=== PATIENT | male | born 1975 | race Caucasian/White ===

== ENCOUNTER 2016-08-12 20:38 | Emergency (ER) | payer BC, OTHER ==
[2016-08-12 20:59] VITALS: BP 131/79
[2016-08-12] MEDS ORDERED: Cyclobenzaprine TAB* 10 MG PO ONE (21:53)
[2016-08-12] MEDS ORDERED: Ketorolac INJ* 60 MG/2 ML VIAL IM ONE (21:54)
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
== END 2016-08-12 22:18 | disposition home or self-care (01) ==
LOC: UCEAST 20:38
DX: G24.3 Spasmodic torticollis (principal); Z88.5 Allergy status to narcotic agent; F17.210 Nicotine dependence, cigarettes, uncomplicated
CPT/HCPCS: 96372; 99212; A9270-GY; G0463; J1885

== ENCOUNTER 2017-07-13 20:22 | Emergency (ER) | payer BC ==
[2017-07-13 20:33] VITALS: BP 110/74
[2017-07-13] MEDS ORDERED: Cyclobenzaprine TAB* 10 MG PO ONE (21:07)
--- NOTE | 2017-07-13 21:20 | UC ---
Neck Pain HPI - HPI Summary HPI Summary: 4 DAYS OF RIGHT NECK/SHOULDER PAIN. HAS FULL ROM. HAS BURSTS OF PAIN WHEN HE TILTS HIS HEAD TO THE RIGHT. NO NUMBNESS/TINGLING. NO INJURY OR TRAUMA. - History of Current Complaint Chief Complaint: UCUpperExtremity Stated Complaint: NECK & SHOULDER PAIN Time Seen by Provider: 07/13/17 20:48 Hx Obtained From: Patient Onset/Duration Of Injury/Symptoms: Days Mechanism Of Injury: No Known Trauma Timing: Intermittent Episodes Onset/Duration: Lasting Minutes Severity: Moderate Pain Intensity: 5 Pain Scale Used: 0-10 Numeric Location: Discrete At: - RIGHT NECK Character: Sharp, Aching Aggravating Factors: Other: - TILTING HEAD TO RIGHT Alleviating Factors: Position Associated Signs & Symptoms: Positive: Negative - Allergies/Home Medications Allergies/Adverse Reactions: Allergies Allergy/AdvReac Type Severity Reaction Status Date / Time hydrocodone Allergy Severe Vomiting Verified 07/13/17 20:33 PMH/Surg Hx/FS Hx/Imm Hx Previously Healthy: Yes - Surgical History Surgical History: Yes Surgery Procedure, Year, and Place: left inguinal hernia - Family History Known Family History: Positive: Cardiac Disease - grandfather Negative: Hypertension - Social History Alcohol Use: Rare Substance Use Type: None Smoking Status (MU): Current Every Day Smoker Type: Cigarettes Amount Used/How Often: 3/4 PPD Length of Time of Smoking/Using Tobacco: 13 years Have You Smoked in the Last Year: No - Immunization History Most Recent Influenza Vaccination: denies Review Of Systems Constitutional: Positive: Negative Skin: Positive: Negative Respiratory: Positive: Negative Cardiovascular: Positive: Negative Gastrointestinal: Positive: Negative All Other Systems Reviewed And Are Negative: Yes Physical Exam Triage Information Reviewed: Yes Appearance: Well-Appearing, No Pain Distress, Well-Nourished Vital Signs: Initial Vital Signs Temp 98.4 F 07/13/17 20:28 Pulse 75 07/13/17 20:28 Resp 16 07/13/17 20:28 BP 110/74 07/13/17 20:28 Pulse Ox 99 07/13/17 20:28 Vital Signs Reviewed: Yes Eyes: Positive: Conjunctiva Clear ENT: Positive: Hearing grossly normal Neck: Positive: Supple, Nontender, No Lymphadenopathy Respiratory: Positive: No respiratory distress, No accessory muscle use Cardiovascular: Positive: Pulses Normal Abdomen Description: Positive: Soft Musculoskeletal: Positive: ROM Intact, No Edema, Other: - NO TENDERNESS NECK/ SHOULDER MUSCLES. NEG ROTATOR CUFF TESTING. NEG SPURLINGS Neurological: Positive: Alert Psychological: Positive: Age Appropriate Behavior Skin: Negative: rashes Neck Pain Course/Dx - Differential Dx/Diagnosis Provider Diagnoses: RIGHT NECK/SHOULDER PAIN Discharge - Discharge Plan Condition: Stable Disposition: HOME Prescriptions: Cyclobenzaprine TAB* [Flexeril TAB*] 10 mg PO BID PRN #30 tab PRN Reason: Pain Naproxen [Naproxen EC] 500 mg PO BID PRN #30 tab PRN Reason: Pain Patient Education Materials: Shoulder Sprain (ED) Referrals: Felipe Francisco MD [Primary Care Provider] - If Needed Rik Demarco MD [Medical Doctor] - If Needed Additional Instructions: BE SURE TO GO THROUGH SLOW RANGE OF MOTION AND STRETCHING EXERCISES DAILY YOU ARE ABLE TO PREVENT STIFFENING UP AND MAKING THE DISCOMFORT WORSE. REST, MASSAGE, HEAT. MUSCLE RELAXER BEFORE BED AND NAPROXEN TWICE DAILY NEEDED. IF YOUR SYMPTOMS ARE NOT IMPROVING OVER THE NEXT FEW DAYS FOLLOW-UP WITH YOUR PCP OR ORTHO FOR FURTHER EVALUATION.
== END 2017-07-13 21:22 | disposition home or self-care (01) ==
LOC: UCEAST 20:22
DX: M54.2 Cervicalgia (principal); M25.511 Pain in right shoulder; F17.210 Nicotine dependence, cigarettes, uncomplicated
CPT/HCPCS: 99212; A9270-GY; G0463

== ENCOUNTER 2018-02-21 20:28 | Emergency (ER) | payer BC ==
[2018-02-21 20:41] VITALS: BP 132/67
[2018-02-21] MEDS ORDERED: Amoxicillin/Clavulanate TAB* 875 MG PO ONE (21:19)
--- NOTE | 2018-02-21 21:25 | UC ---
Respiratory Complaint HPI - HPI Summary HPI Summary: The patient is a 42-year-old male who has been ill for 5-7 days. Started off with a cold and some nasal congestion. He later developed high fever chills as well as severe myalgias. He denies any chest pain or shortness of breath. He denies any nausea or vomiting. - History of Current Complaint Chief Complaint: UCRespiratory Stated Complaint: COUGH,COLD,ACHES Time Seen by Provider: 02/21/18 20:43 Hx Obtained From: Patient Onset/Duration: Gradual Onset, Lasting Days, Worse Since - x 2 d Timing: Constant Severity Initially: Mild Severity Currently: Moderate Pain Intensity: 6 Pain Scale Used: 0-10 Numeric Character: Cough: Productive Associated Signs And Symptoms: Positive: Fever, Chills - Allergies/Home Medications Allergies/Adverse Reactions: Allergies Allergy/AdvReac Type Severity Reaction Status Date / Time hydrocodone Allergy Severe Vomiting Verified 02/21/18 20:41 PMH/Surg Hx/FS Hx/Imm Hx Previously Healthy: Yes Respiratory History: Bronchitis - Surgical History Surgical History: Yes Surgery Procedure, Year, and Place: left inguinal hernia - Family History Known Family History: Positive: Cardiac Disease - grandfather Negative: Hypertension - Social History Alcohol Use: Rare Substance Use Type: None Smoking Status (MU): Light Every Day Tobacco Smoker Type: Cigarettes Amount Used/How Often: 3/4 PPD Length of Time of Smoking/Using Tobacco: 13 years Have You Smoked in the Last Year: No - Immunization History Most Recent Influenza Vaccination: denies Review of Systems Constitutional: Fever, Chills, Fatigue Skin: Negative Eyes: Negative ENT: Negative Respiratory: Cough Cardiovascular: Negative Gastrointestinal: Negative Genitourinary: Negative Motor: Negative Neurovascular: Negative Musculoskeletal: Myalgia Neurological: Headache Psychological: Negative All Other Systems Reviewed And Are Negative: Yes Physical Exam Triage Information Reviewed: Yes Appearance: Well-Appearing, No Pain Distress, Thin Vital Signs: Initial Vital Signs Temp 102.3 F 02/21/18 20:35 Pulse 95 02/21/18 20:35 Resp 16 02/21/18 20:35 BP 132/67 02/21/18 20:35 Pulse Ox 96 02/21/18 20:35 ENT: Positive: Hearing grossly normal. Negative: Nasal congestion, Nasal drainage, Trismus, Muffled voice, Hoarse voice Neck: Positive: Supple, Nontender, No Lymphadenopathy Respiratory: Positive: Lungs clear, Normal breath sounds, No respiratory distress, No accessory muscle use Cardiovascular: Positive: RRR, No Murmur Abdomen Description: Positive: Nontender, Soft. Negative: CVA Tenderness (R), CVA Tenderness (L) Musculoskeletal: Positive: ROM Intact, No Edema Neurological: Positive: Alert Psychological Exam: Normal Skin Exam: Normal UC Diagnostic Evaluation - Laboratory O2 Sat by Pulse Oximetry: 96 - normal/not hypoxic - Radiology Xray Interpretation: Positive (See Comments) - LLL infiltrate Radiology Interpretation Completed By: ED Physician Respiratory Course/Dx - Differential Dx/Diagnosis Provider Diagnoses: pneumonia Discharge - Sign-Out/Discharge Documenting (check all that apply): Patient Departure All imaging exams completed and their final reports reviewed: No - Discharge Plan Condition: Stable Disposition: HOME Prescriptions: Amoxicillin/Clavulanate TAB* [Augmentin TAB 875*] 875 mg PO BID #14 tab Patient Education Materials: Pneumonia (ED) Forms: *Work Release Referrals: Felipe Francisco MD [Primary Care Provider] - 3 Days (if not better) Additional Instructions: rest fluids recheck for new or worsening symptoms - Billing Disposition and Condition Condition: STABLE Disposition: Home
--- NOTE | 2018-02-22 07:52 | RAD ---
INDICATION: 2 days fever; 3 days cough. History of tobacco use. COMPARISON: March 13, 2017 TECHNIQUE: Dual energy PA and routine lateral views of the chest were obtained. REPORT: Elevated lung volumes and mild prominence of interstitial markings. Airspace consolidation at the LEFT lung base likely involving the anteromedial basal segment is suspicious for pneumonia. Negative for pleural effusion or pneumothorax. The heart, pulmonary vasculature, and mediastinal contours are unremarkable. IMPRESSION: #. Probable pneumonia involving the anteromedial basal segment of the LEFT lower lobe. #. Stigmata of probable chronic obstructive pulmonary disease. R1
--- NOTE | 2018-02-22 08:10 | UC ---
- EKG/XRAY/CT Xray Comments: wet read correct Discharge - Sign-Out/Discharge Documenting (check all that apply): Patient Departure All imaging exams completed and their final reports reviewed: Yes - Discharge Plan Condition: Stable Disposition: HOME Prescriptions: Amoxicillin/Clavulanate TAB* [Augmentin TAB 875*] 875 mg PO BID #14 tab Patient Education Materials: Pneumonia (ED) Forms: *Work Release Referrals: Felipe Francisco MD [Primary Care Provider] - 3 Days (if not better) Additional Instructions: rest fluids recheck for new or worsening symptoms - Billing Disposition and Condition Condition: STABLE Disposition: Home
== END 2018-02-21 21:27 | disposition home or self-care (01) ==
LOC: UCEAST 20:28
DX: J18.9 Pneumonia, unspecified organism (principal); F17.210 Nicotine dependence, cigarettes, uncomplicated
CPT/HCPCS: 71046; 99212; A9270-GY; G0463